=== PATIENT | male | born 1965 | race Caucasian/White ===

== ENCOUNTER 2019-12-09 20:28 | Inpatient (IN) | payer MEDICAID, OTHER ==
[~2019-12-09] VITALS: Ht 172.7 cm; Wt 112.5 kg
[2019-12-09] MEDS ORDERED: SODIUM CHLORIDE 0.9% 1,000 ML IV ONE (21:14)
[2019-12-09] MEDS ORDERED: NITROGLYCERIN 0.4MG TABLET SL SL PRN (21:15)
[2019-12-09] MEDS ORDERED: ASPIRIN 81MG TABLET PO ONE (21:15)
[2019-12-09 21:29] LABS: BASOPHILS % 0.6 % (0.0-2.0); EOSINOPHILS % 5.8 % (0.0-5.0); HEMATOCRIT. 42.9 % (42.0-52.0); HEMOGLOBIN. 14.1 g/dL (14.0-18.0); LYMPHOCYTES % 43.3 % (20.0-50.0); MEAN CORPUSCULAR VOLUME 90.9 fL (80.0-94.0); MEAN PLATELET VOLUME 7.7 fl (7.4-10.4); MONOCYTES % 5.3 % (2.0-8.0); PLATELET 287 x1000/uL (130-400); RED BLOOD CELL COUNT 4.72 mill/uL (4.7-6.1); RED CELL DISTRIBUTION WIDTH 14.7 % (11.6-14.6)
[2019-12-09 21:33] LABS: CHLORIDE 100 mEq/L (98-107)
[2019-12-09 21:38] LABS: D-DIMER 0.77 mg/L FEU (<0.50); ETHANOL BLOOD 280 mg/dL; PARTIAL THROMBOPLASTIN TIME 28.8 sec (23.4-31.0); PROTHROMBIN TIME 10.7 sec (9.6-11.0)
[2019-12-09 21:41] LABS: *AMPHETAMINES SCREEN URINE NEGATIVE (NEGATIVE); *BARBITURATES SCREEN URINE NEGATIVE (NEGATIVE); *BENZODIAZEPINES SCREEN URINE NEGATIVE (NEGATIVE); *COCAINE SCREEN URINE NEGATIVE (NEGATIVE); METHADONE URINE SCREEN NEGATIVE (NEGATIVE); OPIATES URINE SCREEN NEGATIVE (NEGATIVE)
[2019-12-09 21:42] LABS: CANNABINOID URINE SCREEN NEGATIVE (NEGATIVE); PHENCYCLIDINE URINE SCREEN NEGATIVE (NEGATIVE)
[2019-12-09] MEDS ORDERED: IOHEXOL-350 100 ML BOTTLE ONE (23:18)
[2019-12-10] MEDS ORDERED: ONDANSETRON HCL 4MG/2ML INJ IV PRN (10:00)
[2019-12-10] MEDS ORDERED: LORAZEPAM 2MG/ML CPJ IV PRN (10:00)
[2019-12-10] MEDS ORDERED: ACETAMINOPHEN 325MG TABLET PO PRN (10:00)
[2019-12-10] MEDS ORDERED: FOLIC ACID 1 MG, THIAMINE HCL 100 MG, MVI, ADULT NO.1 10 ML in DEXTROSE 5% WATER 1,000 ML IV SCH ×4 (10:30)
[2019-12-10 11:39] LABS: CLARITY URINE CLEAR (CLEAR); COLOR URINE YELLOW (YELLOW); KETONES URINE NEGATIVE (NEGATIVE); LEUKOCYTE ESTERASE URINE NEGATIVE (NEGATIVE); NITRITE URINE NEGATIVE (NEGATIVE); OCCULT BLOOD URINE NEGATIVE (NEGATIVE); PH URINE 5.5 (4.5-8.0); PROTEIN URINE NEGATIVE (NEGATIVE); SPECIFIC GRAVITY URINE 1.016 (1.005-1.030); UROBILINOGEN URINE 0.2 E.U./dL (0.2-1.0)
[2019-12-10 13:00] VITALS: BP 141/89
[2019-12-10 14:00] VITALS: BP_SYST 133; BP_SYST 141; BP_DIAS 72; BP_DIAS 89
[2019-12-10] MEDS ORDERED: KETOROLAC 30MG/ML VIAL IV PRN (14:30)
[2019-12-10] MEDS ORDERED: TOPUD PO (15:27)
[2019-12-10] MEDS ORDERED: allo PO (15:27)
[2019-12-10 17:20] LABS: LDL CHOLESTEROL 116 mg/dL (5-100)
[2019-12-10 17:21] LABS: HDL CHOLESTEROL 59 mg/dL (40-59)
[2019-12-10 17:45] VITALS: BP 125/77
[2019-12-10 20:00] VITALS: BP 122/76
[2019-12-10] MEDS ORDERED: FAMOTIDINE 20MG TABLET PO SCH (21:00)
[2019-12-10 22:00] VITALS: BP 133/84
[2019-12-11] VITALS (8 sets, daily range): BP systolic 133–150; BP diastolic 75–99
[2019-12-11] MEDS ORDERED: ASPIRIN 81MG TABLET PO SCH (09:00)
[2019-12-11] MEDS ORDERED: FOLIC ACID 1 MG, THIAMINE HCL 100 MG, MVI, ADULT NO.1 10 ML in DEXTROSE 5% WATER 1,000 ML IV SCH ×8 (10:00→11:00)
== END 2019-12-11 16:16 | disposition home or self-care (01) | DRG 48 ==
LOC: ER 20:28 → 3WST 23:23 → ENRESERV 12-10 12:19
PROVIDERS: ADMIT Internal Medicine; ATTEND Internal Medicine
DX: G90.8 Other disorders of autonomic nervous system (principal); E87.1 Hypo-osmolality and hyponatremia; M94.0 Chondrocostal junction syndrome [Tietze]; F10.129 Alcohol abuse with intoxication, unspecified; E66.9 Obesity, unspecified; M10.9 Gout, unspecified; F17.210 Nicotine dependence, cigarettes, uncomplicated; Z71.6 Tobacco abuse counseling; Z71.41 Alcohol abuse counseling and surveillance of alcoholic; Z68.37 Body mass index [BMI] 37.0-37.9, adult
CPT/HCPCS: 36415; 71045; 71275; 80053; 80061; 80305; 80320; 81003; 83880; 84443; 84484; 85025; 85379; 93005; 93306; 99285; J3411; J3490; J7030; J7070; Q9967; G0480

== ENCOUNTER 2020-10-08 21:27 | Emergency (ER) | payer MEDICAID ==
[~2020-10-08] VITALS: Ht 167.6 cm; Wt 100.0 kg
[~2020-10-08 21:27] MED LIST: TOPUD PO; allo PO
[2020-10-08 23:35] LABS: BASOPHILS % 0.9 % (0.0-2.0); EOSINOPHILS % 1.1 % (0.0-5.0); HEMATOCRIT. 42.8 % (42.0-52.0); HEMOGLOBIN. 14.7 g/dL (14.0-18.0); LYMPHOCYTES % 43.2 % (20.0-50.0); MEAN CORPUSCULAR HEMOGLOBIN 31.3 pg (28.0-32.0); MEAN CORPUSCULAR VOLUME 91.1 fL (80.0-94.0); MEAN PLATELET VOLUME 7.3 fl (7.4-10.4); MONOCYTES % 4.9 % (2.0-8.0); NEUTROPHILS % 49.9 % (40.0-76.0); PLATELET 254 x1000/uL (130-400); RED CELL DISTRIBUTION WIDTH 14.9 % (11.6-14.6)
[2020-10-08 23:38] LABS: CHLORIDE 97 mEq/L (98-107)
[2020-10-08 23:50] LABS: PROTHROMBIN TIME 10.9 sec (9.6-11.0)
[2020-10-09] MEDS: ONDANSETRON HCL 4MG/2ML INJ IV STA (01:03)
[2020-10-09] MEDS: MORPHINE SULFATE 4 MG/ML CPJ (NOT FOR IM USE) IV STA (01:04)
[2020-10-09] MEDS: MAGNESIUM/ALUMINUM HYDROXIDE/SIMETHICONE 30ML UDC PO ONE (03:16)
[2020-10-09] MEDS ORDERED: IOHEXOL-300 100 ML BOTTLE ONE (03:17)
[2020-10-09 05:00] VITALS: BP 122/72
== END 2020-10-09 06:00 | disposition home or self-care (01) ==
LOC: ER 21:27
DX: R10.31 Right lower quadrant pain (principal); R07.89 Other chest pain; R11.2 Nausea with vomiting, unspecified; R06.02 Shortness of breath; F10.20 Alcohol dependence, uncomplicated; Y90.0 Blood alcohol level of less than 20 mg/100 ml
CPT/HCPCS: 36415; 71045; 71260; 74177; 76705; 80053; 83690; 83880; 84484; 85025; 85610; 93005; 96374; 96375; 99285; J2270; J2405; Q9967